=== PATIENT | female | born 1965 | race African-American/Black ===

== ENCOUNTER 2021-03-04 09:21 | Outpatient (REF) | payer OTHER, SELFPAY | END 2021-03-04 09:22 | disposition home or self-care (01) | LOC: HO.MDS 09:21 | PROVIDERS: PCP Internal Medicine; Visit Provider Psychiatry & Neurology Neurology | DX: G37.9 Demyelinating disease of central nervous system, unspecified (principal) | CPT/HCPCS: 96365; J2930 ==

== ENCOUNTER 2021-04-01 09:21 | Outpatient (REF) | payer OTHER, SELFPAY | END 2021-04-01 09:22 | disposition home or self-care (01) | LOC: HO.MDS 09:21 | PROVIDERS: PCP Internal Medicine; Visit Provider Psychiatry & Neurology Neurology | DX: G37.9 Demyelinating disease of central nervous system, unspecified (principal) | CPT/HCPCS: 96365; J2930 ==

== ENCOUNTER 2021-04-29 09:26 | Outpatient (REF) | payer OTHER, SELFPAY | END 2021-04-29 09:27 | disposition home or self-care (01) | LOC: HO.MDS 09:26 | PROVIDERS: PCP Internal Medicine; Visit Provider Psychiatry & Neurology Neurology | DX: G37.9 Demyelinating disease of central nervous system, unspecified (principal) | CPT/HCPCS: 96365; J2930 ==

== ENCOUNTER 2021-05-27 10:00 | Outpatient (REF) | payer OTHER, SELFPAY | END 2021-05-27 10:01 | disposition home or self-care (01) | LOC: HO.MDS 10:00 | PROVIDERS: PCP Internal Medicine; Visit Provider Psychiatry & Neurology Neurology | DX: G37.9 Demyelinating disease of central nervous system, unspecified (principal) | CPT/HCPCS: 96365; J2930 ==

== ENCOUNTER 2021-07-13 09:33 | Outpatient (REF) | payer OTHER, SELFPAY | END 2021-07-13 09:34 | disposition home or self-care (01) | LOC: HO.MDS 09:33 | PROVIDERS: PCP Internal Medicine; Visit Provider Psychiatry & Neurology Neurology | DX: G37.9 Demyelinating disease of central nervous system, unspecified (principal) | CPT/HCPCS: 96365; J2930 ==

== ENCOUNTER 2021-08-12 09:31 | Outpatient (REF) | payer OTHER, SELFPAY | END 2021-08-12 09:32 | disposition home or self-care (01) | LOC: HO.MDS 09:31 | PROVIDERS: PCP Internal Medicine; Visit Provider Psychiatry & Neurology Neurology | DX: G37.9 Demyelinating disease of central nervous system, unspecified (principal) | CPT/HCPCS: 96365; J2930 ==

== ENCOUNTER 2021-09-10 09:30 | Outpatient (REF) | payer OTHER, SELFPAY | END 2021-09-10 09:31 | disposition home or self-care (01) | LOC: HO.MDS 09:30 | PROVIDERS: PCP Internal Medicine; Visit Provider Psychiatry & Neurology Neurology | DX: G37.9 Demyelinating disease of central nervous system, unspecified (principal); M79.7 Fibromyalgia; G25.81 Restless legs syndrome | CPT/HCPCS: 96365; J2930 ==

== ENCOUNTER 2021-10-08 10:35 | Outpatient (REF) | payer OTHER, SELFPAY | END 2021-10-08 10:36 | disposition home or self-care (01) | LOC: HO.MDS 10:35 | PROVIDERS: PCP Internal Medicine; Visit Provider Psychiatry & Neurology Neurology | DX: G37.9 Demyelinating disease of central nervous system, unspecified (principal) | CPT/HCPCS: 96365; J2930 ==

== ENCOUNTER 2021-11-03 10:10 | Outpatient (REF) | payer OTHER, SELFPAY | END 2021-11-03 10:11 | disposition home or self-care (01) | LOC: HO.MDS 10:10 | PROVIDERS: PCP Internal Medicine; Visit Provider Psychiatry & Neurology Neurology | DX: G37.9 Demyelinating disease of central nervous system, unspecified (principal) | CPT/HCPCS: 96365; J2930 ==

== ENCOUNTER 2021-12-03 10:07 | Outpatient (REF) | payer OTHER, SELFPAY | END 2021-12-03 10:08 | disposition home or self-care (01) | LOC: HO.MDS 10:07 | PROVIDERS: PCP Internal Medicine; Visit Provider Psychiatry & Neurology Neurology | DX: G37.9 Demyelinating disease of central nervous system, unspecified (principal) | CPT/HCPCS: 96365; J2930 ==

== ENCOUNTER 2021-12-24 16:12 | Outpatient (REF) | payer OTHER, SELFPAY ==
[2021-12-24 16:35] LABS: MANUAL DIFF FLAG NO
[2021-12-24 17:03] LABS: Basophils Absolute Auto 0.1 X10*3/uL (0.0-0.2); Basophils Percent Auto 0.8 % (0-2); Eosinophils Absolute Auto 0.1 X10*3/uL (0.0-0.4); Eosinophils Percent Auto 1.7 % (0-4); Hematocrit 34.6 % (37.0-47.0); Hemoglobin 10.7 g/dl (12.0-16.0); Imm Gran Abs Auto 0.03 X10*3/uL (0.00-0.03); Imm Gran Pct Auto 0.5 % (0.0-0.4); Lymphocytes Absolute Auto 2.8 X10*3/uL (1.2-4.9); Lymphocytes Percent Auto 46.5 % (20-40); Mean Corpuscular HGB Conc 30.9 g/dl (31.0-35.0); Mean Corpuscular Hemoglobin 28.7 pg (27.0-33.0); Mean Corpuscular Volume 92.8 fL (80.0-98.0); Mean Platelet Volume 10.5 fL (9.4-12.3); Monocytes Absolute Auto 0.5 X10*3/uL (0.1-1.2); Monocytes Percent Auto 8.5 % (2-11); Neutrophils Absolute Auto 2.5 x10*3/uL (2.0-8.3); Platelet Count 304 X10*3/uL (160-400); Red Blood Count 3.73 X10*6/uL (4.20-5.50); Red Cell Distribution Width 12.5 % (11.0-16.0)
[2021-12-24 17:21] LABS: Anion Gap 15 (12-20); Blood Urea Nitrogen 18 mg/dL (9-16); Calcium 10.3 mg/dL (8.4-10.2); Carbon Dioxide 24 mmol/L (22-29); Chloride 106 mmol/L (96-108); Estimated Glomerular Filt Rate 49; Glucose Random 74 mg/dL (60-115); Potassium 4.6 mmol/L (3.3-5.1); Sodium 140 mmol/L (135-145)
[2021-12-24 17:38] LABS: Erythrocyte Sedimentation Rate 12 MM/HR (0-20)
== END 2021-12-24 16:13 | disposition home or self-care (01) ==
LOC: HO.LAB 16:12
PROVIDERS: PCP Internal Medicine; Visit Provider Psychiatry & Neurology Neurology
DX: G37.9 Demyelinating disease of central nervous system, unspecified (principal)
CPT/HCPCS: 36415; 80048; 82550; 84443; 85025; 85652

== ENCOUNTER 2021-12-30 16:13 | Outpatient (REF) | payer OTHER, SELFPAY ==
--- NOTE | ~2021-12-30 | MR_ITS ---
EXAMINATION: MR BRAIN WITHOUT AND WITH CONTRAST CLINICAL INFORMATION: Demyelinating disease. COMPARISON: None available. TECHNIQUE: Multiplanar, multisequence imaging of the brain was performed before and after the intravenous administration of 10 mL of Gadavist. FINDINGS: There is no acute infarction, hemorrhage, mass, or extra-axial fluid collection. Mild to moderate foci of T2/FLAIR hyperintensity are seen within the periventricular, deep, and juxtacortical white matter compatible with provided history of demyelination. No definite signal abnormality is seen within the corpus callosum or in the posterior fossa structures. No abnormal enhancement is seen. The ventricles are normal in size without hydrocephalus. No significant brain parenchymal volume loss is seen. The major arterial flow voids appear grossly preserved. Extracranial structures are within normal limits. MR/MR head/brain wo/w con IMPRESSION: Mild to moderate foci of T2/FLAIR hyperintensity within the supratentorial white matter compatible with demyelinating plaques. No abnormal enhancement. No acute intracranial abnormality.
== END 2021-12-30 16:14 | disposition home or self-care (01) ==
LOC: HO.MRI 16:13
PROVIDERS: PCP Internal Medicine; Visit Provider Psychiatry & Neurology Neurology
DX: G37.9 Demyelinating disease of central nervous system, unspecified (principal)
CPT/HCPCS: 70553; A9585

== ENCOUNTER 2022-01-01 09:19 | Outpatient (REF) | payer OTHER, SELFPAY | END 2022-01-01 09:20 | disposition home or self-care (01) | LOC: HO.MDS 09:19 | PROVIDERS: PCP Internal Medicine; Visit Provider Psychiatry & Neurology Neurology | DX: G37.9 Demyelinating disease of central nervous system, unspecified (principal) | CPT/HCPCS: 96365; J2930 ==

== ENCOUNTER 2022-01-27 16:09 | Outpatient (REF) | payer OTHER, SELFPAY ==
--- NOTE | ~2022-01-27 | MR_ITS ---
EXAMINATION: MR CERVICAL SPINE WITHOUT AND WITH CONTRAST MR THORACIC SPINE WITHOUT AND WITH CONTRAST CLINICAL INFORMATION: Reported history of demyelinating disease. COMPARISON: None TECHNIQUE: Multiplanar, multisequential imaging of the cervical and thoracic spine was performed before and after the intravenous administration of 10 mL of Gadavist. FINDINGS: CERVICAL SPINE: Vertebral Bodies And Paraspinal Soft Tissues: The marrow signal is within normal limits. There is aaka-uw-levfagnh multilevel disc space narrowing. Mild endplate edema and enhancement present anteriorly at the C5-C6 level. There are no compression fractures. Mild retrosubluxation evident at the C4-C5 level. The paraspinal soft tissues are unremarkable. The vertebral artery flow voids are maintained. The imaged lung apices are grossly clear. There is a retropharyngeal course of the right internal carotid artery. Cervicomedullary Junction And Visualized Posterior Fossa: The craniovertebral junction appears normal. The imaged portions of the brain demonstrate no acute abnormality. No cord lesions identified. There is no syrinx. No pathologic intradural enhancement is visible. Spinal Levels: C2-C3: Mild disc bulge and right-sided uncovertebral joint spurring with mild right foraminal encroachment. No central canal stenosis. C3-C4: Shallow central disc protrusion. No central canal stenosis. Lhoh-mt-oqytqbwr left foraminal narrowing. C4-C5: Retrosubluxation and broad-based disc-osteophyte complex with severe left foraminal narrowing and moderate right foraminal encroachment. No central canal stenosis. C5-C6: Broad-based posterior disc bulge with mild endplate spurring. No central canal stenosis. Severe left foraminal narrowing and moderate right foraminal encroachment. C6-C7: Disc-osteophyte complex without central canal stenosis. Moderate bilateral foraminal narrowing. C7-T1: No disc pathology. Hypertrophic facet arthropathy with nles-px-cttkfxur left foraminal encroachment. No central canal stenosis. THORACIC SPINE: There is significant edema and heterogeneous enhancement centered around the endplates with severe disc space narrowing at the T4-T5, T5-T6, and T6-T7 levels. Nwhz-jo-gwrvjhbu endplate edema and enhancement also evident at the T8-T9 level with disc space narrowing. There are no compression fractures or subluxations. Mild thoracic kyphosis evident. No cord lesions are identified. There is no syrinx. No abnormal intramedullary enhancement visible. There is a broad-based posterior disc bulge at the T3-T4 level with nsbi-ku-vokdrqqi foraminal narrowing but no central canal stenosis. At the T4-T5 level, there is a posterior disc bulge and endplate spurring without central canal stenosis and mild foraminal narrowing. At the T5-T6 level, there is a broad-based central disc protrusion flattening the ventral cord with slight narrowing of the central canal and facet arthropathy. Cdyt-mj-hinpezer left foraminal narrowing. At the T6-T7 level, there is a small right paracentral disc protrusion and disc space narrowing with ventral cord deformity. No central canal stenosis evident. Hypertrophic facet arthropathy with fbal-gh-yvixxaoq right foraminal encroachment. Additionally at the T6 level, there is abnormal flattening of the dorsal aspect of the cord, however, no obvious intradural lesion is visible. No abnormal enhancement is seen. No epidural soft tissue abnormality is identified. Degenerative disc bulges and endplate spurring also present with disc space narrowing at the T7-T8, T8-T9, and T9-T10 levels. No central canal stenosis evident. Hypertrophic facet arthropathy present which contributes to moderate right foraminal encroachment at the T6-T7 and T8-T9 levels. Severe right foraminal narrowing at the T9-T10 level. At the T10-T11 and T11-T12 levels there are degenerative disc bulges and hypertrophic facet degeneration with significant foraminal encroachment. Very mild narrowing of the central canal also evident at these levels. MR/MR cervical spine wo/w con IMPRESSION: CERVICAL SPINE: No cord lesions or abnormal enhancement. Multilevel cervical spondylosis without significant central canal stenosis. Disc-osteophyte complexes resulting in fnqkoggv-na-ywuqtn foraminal narrowing at the C4-C5 and C5-C6 levels. Moderate bilateral foraminal narrowing at the C6-C7 level. THORACIC SPINE: No cord lesions identified. No syrinx or pathologic intradural enhancement. Pzygpujj-yw-uzprnk mid thoracic spondylosis with mixed chronic and edematous/enhancing endplate changes. Severe disc space narrowing particularly from the T4 through the T7 levels. Multilevel degenerative disc bulges and facet arthropathy with varying degrees of foraminal encroachment, more significant from the T9-T11 levels. Abnormal flattening distortion of the dorsal aspect of the cord at the T6 level without a visible intradural or epidural soft tissue lesion. Imaging findings may be due to an underlying arachnoid web or adhesion.
--- NOTE | ~2022-01-27 | MR_ITS ---
EXAMINATION: MR CERVICAL SPINE WITHOUT AND WITH CONTRAST MR THORACIC SPINE WITHOUT AND WITH CONTRAST CLINICAL INFORMATION: Reported history of demyelinating disease. COMPARISON: None TECHNIQUE: Multiplanar, multisequential imaging of the cervical and thoracic spine was performed before and after the intravenous administration of 10 mL of Gadavist. FINDINGS: CERVICAL SPINE: Vertebral Bodies And Paraspinal Soft Tissues: The marrow signal is within normal limits. There is fuyj-nc-fwurpuvc multilevel disc space narrowing. Mild endplate edema and enhancement present anteriorly at the C5-C6 level. There are no compression fractures. Mild retrosubluxation evident at the C4-C5 level. The paraspinal soft tissues are unremarkable. The vertebral artery flow voids are maintained. The imaged lung apices are grossly clear. There is a retropharyngeal course of the right internal carotid artery. Cervicomedullary Junction And Visualized Posterior Fossa: The craniovertebral junction appears normal. The imaged portions of the brain demonstrate no acute abnormality. No cord lesions identified. There is no syrinx. No pathologic intradural enhancement is visible. Spinal Levels: C2-C3: Mild disc bulge and right-sided uncovertebral joint spurring with mild right foraminal encroachment. No central canal stenosis. C3-C4: Shallow central disc protrusion. No central canal stenosis. Pfmn-id-okgkbglw left foraminal narrowing. C4-C5: Retrosubluxation and broad-based disc-osteophyte complex with severe left foraminal narrowing and moderate right foraminal encroachment. No central canal stenosis. C5-C6: Broad-based posterior disc bulge with mild endplate spurring. No central canal stenosis. Severe left foraminal narrowing and moderate right foraminal encroachment. C6-C7: Disc-osteophyte complex without central canal stenosis. Moderate bilateral foraminal narrowing. C7-T1: No disc pathology. Hypertrophic facet arthropathy with imyh-ns-golvlvnl left foraminal encroachment. No central canal stenosis. THORACIC SPINE: There is significant edema and heterogeneous enhancement centered around the endplates with severe disc space narrowing at the T4-T5, T5-T6, and T6-T7 levels. Bmlq-qx-hyzgsuil endplate edema and enhancement also evident at the T8-T9 level with disc space narrowing. There are no compression fractures or subluxations. Mild thoracic kyphosis evident. No cord lesions are identified. There is no syrinx. No abnormal intramedullary enhancement visible. There is a broad-based posterior disc bulge at the T3-T4 level with pjkf-to-oyvlgujd foraminal narrowing but no central canal stenosis. At the T4-T5 level, there is a posterior disc bulge and endplate spurring without central canal stenosis and mild foraminal narrowing. At the T5-T6 level, there is a broad-based central disc protrusion flattening the ventral cord with slight narrowing of the central canal and facet arthropathy. Byoi-na-nekqzrtv left foraminal narrowing. At the T6-T7 level, there is a small right paracentral disc protrusion and disc space narrowing with ventral cord deformity. No central canal stenosis evident. Hypertrophic facet arthropathy with kiuv-sa-xcihndap right foraminal encroachment. Additionally at the T6 level, there is abnormal flattening of the dorsal aspect of the cord, however, no obvious intradural lesion is visible. No abnormal enhancement is seen. No epidural soft tissue abnormality is identified. Degenerative disc bulges and endplate spurring also present with disc space narrowing at the T7-T8, T8-T9, and T9-T10 levels. No central canal stenosis evident. Hypertrophic facet arthropathy present which contributes to moderate right foraminal encroachment at the T6-T7 and T8-T9 levels. Severe right foraminal narrowing at the T9-T10 level. At the T10-T11 and T11-T12 levels there are degenerative disc bulges and hypertrophic facet degeneration with significant foraminal encroachment. Very mild narrowing of the central canal also evident at these levels. MR/MR thoracic spine wo/w con IMPRESSION: CERVICAL SPINE: No cord lesions or abnormal enhancement. Multilevel cervical spondylosis without significant central canal stenosis. Disc-osteophyte complexes resulting in wwmgthie-kg-fpcqtw foraminal narrowing at the C4-C5 and C5-C6 levels. Moderate bilateral foraminal narrowing at the C6-C7 level. THORACIC SPINE: No cord lesions identified. No syrinx or pathologic intradural enhancement. Wrkihfjf-at-zmtvzl mid thoracic spondylosis with mixed chronic and edematous/enhancing endplate changes. Severe disc space narrowing particularly from the T4 through the T7 levels. Multilevel degenerative disc bulges and facet arthropathy with varying degrees of foraminal encroachment, more significant from the T9-T11 levels. Abnormal flattening distortion of the dorsal aspect of the cord at the T6 level without a visible intradural or epidural soft tissue lesion. Imaging findings may be due to an underlying arachnoid web or adhesion.
== END 2022-01-27 16:10 | disposition home or self-care (01) ==
LOC: HO.MRI 16:09
PROVIDERS: Visit Provider Psychiatry & Neurology Neurology
DX: G37.9 Demyelinating disease of central nervous system, unspecified (principal)
CPT/HCPCS: 72156; 72157; A9585

== ENCOUNTER 2022-01-28 10:32 | Outpatient (REF) | payer OTHER, SELFPAY | END 2022-01-28 10:33 | disposition home or self-care (01) | LOC: HO.MDS 10:32 | PROVIDERS: PCP Internal Medicine; Visit Provider Psychiatry & Neurology Neurology | DX: G37.9 Demyelinating disease of central nervous system, unspecified (principal) | CPT/HCPCS: 96365; J2930 ==

== ENCOUNTER 2022-02-25 09:16 | Outpatient (REF) | payer OTHER, SELFPAY | END 2022-02-25 09:17 | disposition home or self-care (01) | LOC: HO.MDS 09:16 | PROVIDERS: PCP Internal Medicine; Visit Provider Psychiatry & Neurology Neurology | DX: G37.9 Demyelinating disease of central nervous system, unspecified (principal); M79.7 Fibromyalgia | CPT/HCPCS: 96365; J2930 ==

== ENCOUNTER 2022-03-26 09:19 | Outpatient (REF) | payer OTHER, SELFPAY | END 2022-03-26 09:20 | disposition home or self-care (01) | LOC: HO.MDS 09:19 | PROVIDERS: PCP Internal Medicine; Visit Provider Psychiatry & Neurology Neurology | DX: G37.9 Demyelinating disease of central nervous system, unspecified (principal) | CPT/HCPCS: 96365; J2930 ==

== ENCOUNTER 2022-04-23 10:53 | Outpatient (REF) | payer OTHER, SELFPAY | END 2022-04-23 10:54 | disposition home or self-care (01) | LOC: HO.MDS 10:53 | PROVIDERS: PCP Internal Medicine; Visit Provider Psychiatry & Neurology Neurology | DX: G37.9 Demyelinating disease of central nervous system, unspecified (principal) | CPT/HCPCS: 96365; J2930 ==

== ENCOUNTER 2022-05-21 10:52 | Outpatient (REF) | payer OTHER, SELFPAY | END 2022-05-21 10:53 | disposition home or self-care (01) | LOC: HO.MDS 10:52 | PROVIDERS: Visit Provider Psychiatry & Neurology Neurology | DX: G37.9 Demyelinating disease of central nervous system, unspecified (principal) | CPT/HCPCS: 96365; J2930 ==

== ENCOUNTER 2022-06-11 09:17 | Outpatient (REF) | payer OTHER, SELFPAY ==
[2022-06-11 09:50] LABS: MANUAL DIFF FLAG NO
[2022-06-11 10:47] LABS: Basophils Percent Auto 0.9 % (0-2); Eosinophils Absolute Auto 0.1 X10*3/uL (0.0-0.4); Eosinophils Percent Auto 2.4 % (0-4); Hematocrit 32.1 % (37.0-47.0); Hemoglobin 10.3 g/dl (12.0-16.0); Imm Gran Abs Auto 0.02 X10*3/uL (0.00-0.03); Imm Gran Pct Auto 0.4 % (0.0-0.4); Lymphocytes Absolute Auto 2.1 X10*3/uL (1.2-4.9); Lymphocytes Percent Auto 47.4 % (20-40); Mean Corpuscular HGB Conc 32.1 g/dl (31.0-35.0); Mean Corpuscular Hemoglobin 28.5 pg (27.0-33.0); Mean Corpuscular Volume 88.7 fL (80.0-98.0); Mean Platelet Volume 10.7 fL (9.4-12.3); Monocytes Absolute Auto 0.5 X10*3/uL (0.1-1.2); Neutrophils Absolute Auto 1.7 x10*3/uL (2.0-8.3); Neutrophils Percent Auto 38.9 % (45-73); Platelet Count 265 X10*3/uL (160-400); Red Blood Count 3.62 X10*6/uL (4.20-5.50); Red Cell Distribution Width 12.7 % (11.0-16.0); White Blood Count 4.5 X10*3/uL (4.8-10.8)
[2022-06-11 11:10] LABS: Anion Gap 16 (12-20); Carbon Dioxide 22 mmol/L (22-29); Chloride 107 mmol/L (96-108); Sodium 141 mmol/L (135-145)
[2022-06-11 11:23] LABS: Thyroid Stimulating Hormone 0.08 uIU/mL (0.32-4.0)
[2022-06-11 11:29] LABS: Erythrocyte Sedimentation Rate 12 MM/HR (0-20)
[2022-06-15 18:16] LABS: Lyme Abs Screen <0.90 index
[2022-06-18 22:52] LABS: JCV Antibody POSITIVE; JCV Index Value 3.77
== END 2022-06-11 09:18 | disposition home or self-care (01) ==
LOC: HO.LAB 09:17
PROVIDERS: PCP Internal Medicine; Visit Provider Psychiatry & Neurology Neurology
DX: M79.7 Fibromyalgia (principal); G37.9 Demyelinating disease of central nervous system, unspecified
CPT/HCPCS: 36415; 80051; 82550; 84443; 85025; 85652; 86617; 86618; 86711

== ENCOUNTER 2022-09-27 12:50 | Outpatient (REF) | payer OTHER, SELFPAY | END 2022-09-27 12:51 | disposition home or self-care (01) | LOC: HO.MDS 12:50 | PROVIDERS: Visit Provider Psychiatry & Neurology Neurology | DX: G37.9 Demyelinating disease of central nervous system, unspecified (principal) | CPT/HCPCS: 96365; J2930 ==

== ENCOUNTER 2022-09-28 12:35 | Outpatient (REF) | payer OTHER, SELFPAY | END 2022-09-28 12:36 | disposition home or self-care (01) | LOC: HO.MDS 12:35 | PROVIDERS: Visit Provider Psychiatry & Neurology Neurology | DX: G37.9 Demyelinating disease of central nervous system, unspecified (principal) | CPT/HCPCS: 96365; J2930 ==

== ENCOUNTER 2022-09-29 09:24 | Outpatient (REF) | payer OTHER, SELFPAY | END 2022-09-29 09:25 | disposition home or self-care (01) | LOC: HO.MDS 09:24 | PROVIDERS: Visit Provider Psychiatry & Neurology Neurology | DX: G37.9 Demyelinating disease of central nervous system, unspecified (principal) | CPT/HCPCS: 96365; J2930 ==

== ENCOUNTER 2022-10-19 09:56 | Outpatient (REF) | payer OTHER, SELFPAY ==
--- NOTE | ~2022-10-19 | XR_ITS ---
EXAMINATION: XR CHEST CLINICAL INFORMATION: Chest pain COMPARISON: None TECHNIQUE: 2 views of the chest were obtained. FINDINGS: The cardiomediastinal silhouette is within normal limits. Elevation right hemidiaphragm. Mild central and vascular prominence. There is no focal consolidation, edema, or effusion. No pneumothorax. Multilevel dorsal spine degeneration. Metallic bone anchors in the left humeral head. Surgical clips in the upper abdomen. XR/XR chest 2V IMPRESSION: No acute pulmonary process seen.
[2022-10-19 11:32] LABS: Anion Gap 13 (12-20); Calcium 9.8 mg/dL (8.4-10.2); Carbon Dioxide 26 mmol/L (22-29); Chloride 103 mmol/L (96-108); Phosphorus 4.8 mg/dL (2.7-4.5); Potassium 4.4 mmol/L (3.3-5.1); Sodium 138 mmol/L (135-145)
[2022-10-19 11:38] LABS: Thyroid Stimulating Hormone 0.73 uIU/mL (0.32-4.0)
== END 2022-10-19 09:57 | disposition home or self-care (01) ==
LOC: HO.LAB 09:56
PROVIDERS: PCP Internal Medicine; Visit Provider Psychiatry & Neurology Neurology
DX: G37.9 Demyelinating disease of central nervous system, unspecified (principal); R07.9 Chest pain, unspecified
CPT/HCPCS: 36415; 71046; 80051; 82310; 82550; 83735; 84100; 84443

== ENCOUNTER 2024-05-22 15:17 | Outpatient (REF) | payer OTHER, SELFPAY ==
[2024-05-22 17:39] LABS: Alanine Aminotransferase 17 U/L (0-31); Albumin Level 4.2 g/dL (3.5-5.0); Alkaline Phosphatase 67 U/L (39-117); Anion Gap 13 (12-20); Aspartate Amino Transferase 21 U/L (5-31); Bilirubin Total 0.5 mg/dL (0.0-1.0); Blood Urea Nitrogen 18 mg/dL (9-16); Calcium 9.4 mg/dL (8.4-10.2); Carbon Dioxide 23 mmol/L (22-29); Chloride 109 mmol/L (96-108); Estimated Glomerular Filt Rate 60; Glucose Random 79 mg/dL (60-115); Potassium 4.1 mmol/L (3.3-5.1); Sodium 141 mmol/L (135-145); Total Protein 6.9 g/dL (6.5-8.0)
[2024-05-26 15:52] LABS: Alkaline Phosphatase Bone 22.2 mcg/L (5.6-29.0)
== END 2024-05-22 15:18 | disposition home or self-care (01) ==
LOC: HO.LAB 15:17
PROVIDERS: PCP Internal Medicine; Visit Provider Student in an Organized Health Care Education/Training Program
DX: M88.9 Osteitis deformans of unspecified bone (principal); M79.7 Fibromyalgia
CPT/HCPCS: 36415; 80053; 84075; 99202

== ENCOUNTER 2024-05-22 15:17 | Outpatient (AMB) | payer OTHER, SELFPAY ==
--- NOTE | 2024-05-22 15:19 | A.OFFVIS_ITS ---
Vital Signs 05/22/24 15:33 Height 5 ft 7 in Weight 210 lb 5.136 oz BMI 32.9 BP 124/80 Blood Pressure Location Lt brachial Position Sitting Pulse 55 Pulse Source Pulse Oximeter Pulse Oximetry (%) 96 Oxygen Delivery Method Room Air Intake Visit Reasons: Fibromyalgia/CM Intake Note: Patient presents for Fibromyalgia. Allergies Iodinated Contrast Media [IV Dye, Iodine Containing] Allergy (Unknown, Verified 05/22/24 15:22) UNKNOWN Penicillins Allergy (Unknown, Verified 05/22/24 15:22) UNKNOWN scallops Allergy (Unknown, Verified 05/22/24 15:22) UNKNOWN From Erythrocin Allergy (Unknown, Uncoded 06/26/20 16:19) UNKNOWN Medication List - Last Reconciled 05/22/24 by Austin Willis MD diltiazem HCl ER 60 mg PO ONCE doxycycline hyclate 100 mg PO BID duloxetine 60 mg PO DAILY gabapentin 300 mg PO BID levothyroxine 112 mcg PO DAILY losartan 50 mg PO DAILY quetiapine (Seroquel) 100 mg PO BEDTIME spironolactone 25 mg PO DAILY HPI Comments Details: This is a 15-year-old female who presents for evaluation of fibromyalgia and p rednisone disease. Patient was told that she has Paget's disease based on hip x-rays in the past. I do not have records of these. She states that she has never received any treatment specific for Paget's disease. She also states that she has had fibromyalgia for many years. She has diffuse pain everywhere. [facility] Medical History (Updated 05/22/24 @ 16:03 by Austin Willis MD) Focal nodular hyperplasia of liver Depression Chronic back pain Hypertension Migraine Fibromyalgia, primary PAT (paroxysmal atrial tachycardia) Thoracic aortic aneurysm RLS (restless legs syndrome) Demyelinating disease Stage 3a chronic kidney disease Social History Household Members: Spouse Housing: Apartment Alcohol intake: current Comment: rare Patient Tobacco Use Status: Former Tobacco user Cigarette Packs Per Day: 0.5 Cigarettes Per Day: 3 Years Smoked: 2 years Review of Systems Const Reports fatigue and Reports weakness Eyes Reports blurry vision, Reports dry eyes, Reports loss of vision and Reports eye pain ENT Reports dry mouth and Reports tinnitus Musc Reports myalgias, Reports arthralgias, Reports joint swelling, Reports limited range of motion and Reports stiffness Neuro Reports loss of vision and Reports weakness Endo Reports fatigue Physical Exam Vital Signs: Last Vital Signs Pulse 55 05/22/24 15:33 BP 124/80 05/22/24 15:33 Pulse Ox 96 05/22/24 15:33 Oxygen Delivery Method Room Air 05/22/24 15:33 BMI result Body Mass Index 32.9 Const General: cooperative, healthy appearing and comfortable Nutritional Appearance: obese Orientation/consciousness: patient oriented x3 Limitations: no limitations HEENT Head: Yes normocephalic and Yes atraumatic Mouth: moist mucous membranes Resp Effort & Inspection: normal respiratory effort and able to speak in complete sentences Auscultation: clear to auscultation bilaterally Cardio Rate: regular rate Rhythm: regular rhythm Skin General skin exam: no rashes or lesions noted Neuro General: patient oriented x3 Extrem Other: Osteoarthritic changes of both hands with no active synovitis Multiple fibromyalgia tender points Assessment & Plan Assessment & Plan (1) Fibromyalgia, primary: Code(s): M79.7 - Fibromyalgia Category: Medical Plan: This is a 58-year-old female with history of fibromyalgia who presents for evaluation. She states that she was told she has rashes disease based on hip x- rays in the past. She never received any specific treatment for it. I could not find any records of imaging studies confirming her history. I will order a bone scan as well as labs for Paget's disease Discussed management of fibromyalgia with patient. Is a noninflammatory, non-autoimmune central afferent processing disorder leading to a diffuse pain syndrome. I suggested that patient try to address her underlying psychiatric issues, anxiety/depression. I suggested evaluation by a therapist and/or a psychiatrist. Patient had done sleep study in the past and it did not show sleep apnea.. Try to follow sleep hygiene practices. Patient would benefit from increased physical activity, either through formal physical therapy or by joining a gym. Advised patient that she should start activity slowly and increase as tolerated. Consider low-impact exercises such as walking, swimming, aqua therapy stretching, yoga. She is on duloxetine 60 mg daily Follow-up in about 8 weeks Plan I spent 48 minutes reviewing patient's chart, evaluating patient, ordering diagnostic workup, counseling patient and documenting in the chart Orders: Orders Comprehensive Met. Panel Today M88.9 - Osteitis deformans of unspecified bone Alkaline Phosphatase Bone Today M88.9 - Osteitis deformans of unspecified bone NM bone scan whole body Today M88.9 - Osteitis deformans of unspecified bone Coding Level of Care Code New Pt Level 4 (76342) Diagnoses Fibromyalgia, primary M79.7
[2024-05-22 15:33] VITALS: BP 124/80; PULSE 55; O2SAT 96; BMI 32.9
== END 2024-05-22 16:00 | disposition home or self-care (01) ==
PROVIDERS: PCP Internal Medicine; Visit Provider Student in an Organized Health Care Education/Training Program
DX: M79.7 Fibromyalgia (principal)
CPT/HCPCS: 99204

== ENCOUNTER → 2024-06-22 11:00 | Outpatient (REF) | payer OTHER, SELFPAY ==
--- NOTE | ~2024-06-22 | NM_ITS ---
EXAMINATION: NM BONE SCAN OF THE WHOLE BODY CLINICAL INFORMATION: Osteitis deformans of unspecified bone. Patient was told she has Paget's disease in the past. Please evaluate for any signs suggestive of Paget's. COMPARISON: No previous bone scan is available for comparison. Radiographs of the chest dated 10/19/2022 are the only prior radiographs available for comparison. MRI of the cervical and thoracic spine dated 01/27/2022 is available for comparison. TECHNIQUE: Multiple gamma scintillation camera images of the whole body were performed 3 hours following the intravenous administration of 30 mCi Tc-99m MDP. FINDINGS: In the head, no significant abnormalities are present. In the thoracic cage and upper extremities, there is minimally increased activity in the sternoclavicular joints bilaterally, more prominently on the left. There is a small focus of mildly increased activity in the lateral subacromial lesion of the left humeral head and faintly at the same site on the right. In the spine, there is a mild diffuse increase in activity in the mid and lower thoracic spine extending from approximately T4-T11. A mild thoracolumbar scoliosis is present with lumbar convexity to the left. In the pelvis, no significant abnormalities are present. In the lower extremities, foci of minimally increased activity are present in the knees bilaterally, and the proximal left foot. No other definite bony abnormalities are noted. The urinary bladder and faint visualization of both kidneys are noted. The fourth 2021 MRI of the thoracic spine showed diffuse degenerative changes that appear to correspond to the bone scan abnormalities in this region described above. NM/NM bone scan whole body IMPRESSION: 1. Diffuse mild to moderate abnormalities in the thoracic spine are probably due to degenerative disease. The appearance is not typical of Paget's disease of bone. 2. A few additional mild nonspecific abnormalities are noted as described above and these are all likely arthritic or traumatic in etiology. None of these abnormalities is strongly suspicious for metastatic disease. 3. No abnormalities typical of Paget's disease of bone are visualized. Electronically signed by: Efrain Ragsdale MD 06/28/2024 11:38 AM EDT
== END ==
LOC: HO.NUCMED 11:00
PROVIDERS: PCP Internal Medicine; Visit Provider Student in an Organized Health Care Education/Training Program
DX: M88.9 Osteitis deformans of unspecified bone (principal)
CPT/HCPCS: 78306; A9503

== ENCOUNTER 2024-07-26 11:05 | Outpatient (AMB) | payer OTHER, SELFPAY ==
--- NOTE | 2024-07-26 11:05 | MHC.OFFVIS ---
Vital Signs 07/26/24 11:08 Height 5 ft 7 in Weight 212 lb 15.465 oz BMI 33.4 BP 122/70 Blood Pressure Location Rt brachial Position Sitting Pulse 55 Pulse Source Pulse Oximeter Pulse Oximetry (%) 99 Oxygen Delivery Method Room Air Intake Visit Reasons: Fibromyalgia/CM Intake Note: Patient presents for Fibromyalgia. Allergies Iodinated Contrast Media [IV Dye, Iodine Containing] Allergy (Unknown, Verified 07/26/24 11:08) UNKNOWN Penicillins Allergy (Unknown, Verified 07/26/24 11:08) UNKNOWN scallops Allergy (Unknown, Verified 07/26/24 11:08) UNKNOWN From Erythrocin Allergy (Unknown, Uncoded 06/26/20 16:19) UNKNOWN Medication List - Last Reconciled 07/26/24 by Austin Willis MD diltiazem HCl ER 60 mg PO ONCE doxycycline hyclate 100 mg PO BID duloxetine 60 mg PO DAILY gabapentin 300 mg PO BID levothyroxine 112 mcg PO DAILY losartan 50 mg PO DAILY quetiapine (Seroquel) 100 mg PO BEDTIME spironolactone 25 mg PO DAILY [thumb spica wear as much as possible throughout the day] HPI Comments Details: Patient returns for follow-up after completion of her diagnostic workup. She continues to feel about the same. Initial history: This is a 15-year-old female who presents for evaluation of fibromyalgia and prednisone disease. Patient was told that she has Paget's disease based on hip x-rays in the past. I do not have records of these. She states that she has never received any treatment specific for Paget's disease. She also states that she has had fibromyalgia for many years. She has diffuse pain everywhere. [facility] Medical History (Updated 07/26/24 @ 11:23 by Austin Willis MD) Focal nodular hyperplasia of liver Depression Chronic back pain Hypertension Migraine Fibromyalgia, primary PAT (paroxysmal atrial tachycardia) Thoracic aortic aneurysm RLS (restless legs syndrome) Demyelinating disease Stage 3a chronic kidney disease Social History Household Members: Spouse Housing: Apartment Alcohol intake: current Comment: rare Patient Tobacco Use Status: Former Tobacco user Cigarette Packs Per Day: 0.5 Cigarettes Per Day: 3 Years Smoked: 2 years Review of Systems Const Reports fatigue and Reports weakness Musc Reports myalgias, Reports arthralgias, Reports limited range of motion and Reports stiffness Neuro Reports weakness Endo Reports fatigue Physical Exam Vital Signs: Last Vital Signs Pulse 55 07/26/24 11:08 BP 122/70 07/26/24 11:08 Pulse Ox 99 07/26/24 11:08 Oxygen Delivery Method Room Air 07/26/24 11:08 BMI result Body Mass Index 33.4 Const General: cooperative, healthy appearing and comfortable Nutritional Appearance: obese Orientation/consciousness: patient oriented x3 Limitations: no limitations HEENT Head: Yes normocephalic and Yes atraumatic Resp Effort & Inspection: normal respiratory effort and able to speak in complete sentences Skin General skin exam: no rashes or lesions noted Neuro General: patient oriented x3 Extrem Other: Osteoarthritic changes of both hands with no active synovitis Multiple fibromyalgia tender points Results Reviewed Results Reviewed: Ordering Physician: Austin Willis MD Date of Service: 06/22/24 Procedure(s): NM bone scan whole body Accession Number(s): [id number] cc: Meño Stewart III, MD; Austin Willis MD~ EXAMINATION: NM BONE SCAN OF THE WHOLE BODY CLINICAL INFORMATION: Osteitis deformans of unspecified bone. Patient was told she has Paget's disease in the past. Please evaluate for any signs suggestive of Paget's. COMPARISON: No previous bone scan is available for comparison. Radiographs of the chest dated 10/19/2022 are the only prior radiographs available for comparison. MRI of the cervical and thoracic spine dated 01/27/2022 is available for comparison. TECHNIQUE: Multiple gamma scintillation camera images of the whole body were performed 3 hours following the intravenous administration of 30 mCi Tc-99m MDP. FINDINGS: In the head, no significant abnormalities are present. In the thoracic cage and upper extremities, there is minimally increased activity in the sternoclavicular joints bilaterally, more prominently on the left. There is a small focus of mildly increased activity in the lateral subacromial lesion of the left humeral head and faintly at the same site on the right. In the spine, there is a mild diffuse increase in activity in the mid and lower thoracic spine extending from approximately T4-T11. A mild thoracolumbar scoliosis is present with lumbar convexity to the left. In the pelvis, no significant abnormalities are present. In the lower extremities, foci of minimally increased activity are present in the knees bilaterally, and the proximal left foot. No other definite bony abnormalities are noted. The urinary bladder and faint visualization of both kidneys are noted. The fourth 2021 MRI of the thoracic spine showed diffuse degenerative changes that appear to correspond to the bone scan abnormalities in this region described above. NM/NM bone scan whole body IMPRESSION: 1. Diffuse mild to moderate abnormalities in the thoracic spine are probably due to degenerative disease. The appearance is not typical of Paget's disease of bone. 2. A few additional mild nonspecific abnormalities are noted as described above and these are all likely arthritic or traumatic in etiology. None of these abnormalities is strongly suspicious for metastatic disease. 3. No abnormalities typical of Paget's disease of bone are visualized. Electronically signed by: Efrain Ragsdale MD 06/28/2024 11:38 AM EDT Dictated By: Efrain Ragsdale MD Signed By: <Electronically signed by Efrain Ragsdale MD in OV> 06/28/24 1138 Assessment & Plan Assessment & Plan (1) Fibromyalgia, primary: Code(s): M79.7 - Fibromyalgia Category: Medical Plan: This is a 58-year-old female with history of fibromyalgia who presents for evaluation. She was told that she has Paget's disease in the past. It does not look like she received any specific treatment for it. I ordered a bone scan which ruled out Paget's disease. Patient reassured I reiterated the management strategies for fibromyalgia. Patient fully understands. Follow-up with PCP (2) Osteoarthritis of thumbs, bilateral: Code(s): M18.0 - Bilateral primary osteoarthritis of first carpometacarpal joints Category: Medical Plan: Discussed nature of osteoarthritis. Advised patient to try using OTC Voltaren gel. I prescribed a thumb spica splint Follow-up with PCP Plan I spent 15 minutes reviewing patient's chart, evaluating patient, counseling patient and documenting in the chart Medications: New [thumb spica] wear as much as possible throughout the day 2 ea 0RF M18.0 - Bilateral primary osteoarthritis of first carpometacarpal joints Coding Level of Care Code Est Pt Level 3 (50894) Diagnoses Fibromyalgia, primary M79.7 Osteoarthritis of thumbs, bilateral M18.0
[2024-07-26 11:08] VITALS: BP 122/70; PULSE 55; O2SAT 99; BMI 33.4
== END 2024-07-26 12:35 | disposition home or self-care (01) ==
PROVIDERS: PCP Internal Medicine; Visit Provider Student in an Organized Health Care Education/Training Program
DX: M79.7 Fibromyalgia (principal); M18.0 Bilateral primary osteoarthritis of first carpometacarpal joints
CPT/HCPCS: 99213

== ENCOUNTER → 2024-07-26 11:05 | Outpatient (BNVA) | payer OTHER, SELFPAY | PROVIDERS: PCP Internal Medicine; Visit Provider Student in an Organized Health Care Education/Training Program | DX: M79.7 Fibromyalgia (principal); M18.0 Bilateral primary osteoarthritis of first carpometacarpal joints | CPT/HCPCS: 99212 ==